=== PATIENT | male | born 1990 | race Caucasian/White ===

== ENCOUNTER 2019-05-25 02:36 | Emergency (ER) | payer MEDICAID ==
[~2019-05-25] VITALS: Ht 170.2 cm; Wt 81.6 kg
[2019-05-25 02:36] VITALS: BP_SYST 130
[2019-05-25 03:36] VITALS: BP_SYST 130
== END 2019-05-25 03:36 ==
LOC: SED 02:36
DX: S63.591A Other specified sprain of right wrist, initial encounter (principal); F12.90 Cannabis use, unspecified, uncomplicated; X58.XXXA Exposure to other specified factors, initial encounter; Y93.89 Activity, other specified; Y92.89 Other specified places as the place of occurrence of the external cause; Y99.8 Other external cause status
CPT/HCPCS: 99283